=== PATIENT | male | born 1955 | race African-American/Black ===

== ENCOUNTER 2018-10-13 08:52 | Day surgery (SDC) | payer OTHER ==
[2018-10-10 10:34] VITALS: BMI 32.2
--- NOTE | 2018-10-13 11:24 | OP ---
Operative Note - Note: Operative Date: 10/13/18 Pre-Operative Diagnosis: Right renal stone Operation: Right ESWL Findings: 7 mm lower Left renal pole stone Surgeon: Elia Griffith Anesthesia: Fractional Estimated Blood Loss (mls): 0 Operative Report Dictated: Yes
[2018-10-13 14:52] VITALS: BP 145/79; PULSE 55; TEMP 98
--- NOTE | 2018-10-13 17:49 | OP ---
DATE OF OPERATION: 10/13/2018 PREOPERATIVE DIAGNOSIS: Right renal stone. POSTOPERATIVE DIAGNOSIS: Right renal stone. PROCEDURE: Right extracorporeal shock wave lithotripsy. ATTENDING SURGEON: Florecita Griffith MD ANESTHESIA: Fractional. OPERATION: As follows, the patient was brought into the operating room and placed in a supine position on the operating room table. Ultrasonography and fluoroscopy were performed. A 7-mm right lower pole stone was identified. At this point, anesthesia and preoperative antibiotics were then administered. Shock wave lithotripsy was then performed. Impulses 2500 at 17 joules of power was administered to the stone. The patient was noted to have excellent fragmentation of the stone noted under real-time ultrasonography and fluoroscopy. No complications were noted. DISPOSITION: The disposition of the patient was to the recovery room. FLORECITA PERRY M.D. /[id number]
== END 2018-10-13 14:40 | disposition home or self-care (01) ==
LOC: JASU-SURG 08:52
PROVIDERS: ATTEND Urology
PROC: 0TF3XZZ Fragmentation in Right Kidney Pelvis, External Approach (ICD-10-PCS; principal; 2018-10-13 09:30)
DX: N20.0 Calculus of kidney (principal); I10 Essential (primary) hypertension; E11.9 Type 2 diabetes mellitus without complications; Z79.84 Long term (current) use of oral hypoglycemic drugs
CPT/HCPCS: 82962